=== PATIENT | female | born 1950 | race Caucasian/White ===

== ENCOUNTER → 2016-09-18 | Outpatient (CLI) | payer BC, MEDICARE ==
[~2016-09-18] MED LIST: ACETAMINOPHEN650 M3 PO; ACTOS PO; ALBUTEROL17 GM INH; ALPRAZOLAM PO; AMOXICILLIN500 M1 PO; ASPIRIN81 M1 PO; ASPIRIN81 M2 PO; CARDIZEM CD180 M1 PO; CARTIA XT180 M1 PO; CO Q10100 MG PO; COMBIVENT RESPIM4 GM INH; CYMBALTA20 M1 PO; CYMBALTA30 M1; CYMBALTA30 M1 PO; DIFLUCAN100 MG PO; DURAGESIC75 MCG EXT; DYAZIDE 37.5/251 CAP PO; DYAZIDE 371 CAP 37.5 DOB; DYAZIDE 371 CAP 37.5 PO; FENTANYL1 EAC1 TD; GLIPIZIDE10 MG PO; GLUCOTROL XL PO; HYDRALAZINE HCL10 MG PO; HYDROCHLOROTHIA25 MG PO; HYDROCODON-ACE1 EAC5 PO; HYDROCODONE-APA1 T54 PO; JANUVIA PO; JANUVIA25 MG PO; LASIX PO; LASIX80 MG PO; LEVAQUIN750 MG PO; LEVEMIR; LEVEMIR SUBQ; LEVEMIR100 UNITS/ SUBQ; LISINOPRIL10 MG PO; LOVENOX40 MG/0.4 INJ; MARY'S MAGIC POTION PO; METFORMIN HCL1000 M1 PO; METFORMIN PO; METOPROLOL SUC100 MG PO; MILK OF MAGNESIA PO; MULTI VITAMIN1 EACH PO; MULTI-VITAMIN1 EAC1 PO; NILSTAT1 ML PO; NOVOLOG100 U/M1 SUBQ; NOVOLOG100 U/ML; OXYGEN; PANTOPRAZOLE SO40 MG IVP; PANTOPRAZOLE SO40 MG PO; PEPCID40 MG PO; PLAVIX PO; PREDNISONE PO; PREDNISONE10 MG/DOSE PO; REMERON PO; STIOLTO RESPIMAT4 GM; STIOLTO RESPIMAT4 GM INH; SYMBICORT INH; TOPROL XL100 MG PO; ZESTORETIC 20-1 EACH PO; ZOCOR PO; ZOFRAN ODT4 MG IVP; ZOFRAN ODT4 MG PO
--- NOTE | ~2016-09-18 | XA60 ---
[facility] A Service of [facility] & [facility] RADIOLOGY TEXT RESULTS PATIENT: SARAHY HUMPHRIES LOCATION: [facility] : 46 UNIT #: [id number] AGE: [address]: Herson Ambriz MD SEX: F ORDER DR: [id number] [facility] [address] [place], [place] [address] [id number] O MR#: [id number] Acc #: [id number] NAME: SARAHY HUMPHRIES : 1950 SEX: F STUDY DATE/TIME: 09/18/2016 8:47 UNIT: [facility] ROOM: STUDY DESCRIPTION: XA BX Perc Liver Attending Physician: Herson Ambriz M.D. Ordering Physician: Herson Ambriz M.D. Primary Care Physician: Damon Pimentel M.D. MEDICAL IMAGING REPORT This report is preliminary unless electronic signature is present EXAM Biopsy, percutaneous, liver. INDICATION Miss Humphries is a 66-year-old lady, has a history of pancreatic cancer. She underwent CT-guided biopsy of a lesion within the right hepatic lobe on August 18, 2016. Additional material has been requested. FINDINGS Please see CT guide for results. Dictated by... Yudi Zafar M.D. THIS IS AN ELECTRONICALLY VERIFIED REPORT Yudi Zafar M.D. at 09/19/2016 5:00 PM AFF/tmw TD: 09/19/2016 12:23 JOB #: [id number] MEDICAL IMAGING REPORT COPY
--- NOTE | ~2016-09-18 | CT134 ---
[facility] A Service of [facility] & [facility] RADIOLOGY TEXT RESULTS PATIENT: SARAHY HUMPHRIES LOCATION: [facility] : 46 UNIT #: [id number] AGE: [address]: Herson Ambriz MD SEX: F ORDER DR: [id number] [facility] [address]. [place], [place] [address] [id number] O MR#: [id number] Acc #: [id number] NAME: SARAHY HUMPHRIES. : 1950 SEX: F STUDY DATE/TIME: 09/18/2016 8:47 UNIT: [facility] ROOM: STUDY DESCRIPTION: CT Guide Attending Physician: Herson Ambriz M.D. Ordering Physician: Herson Ambriz M.D. Primary Care Physician: Damon Pimentel M.D. MEDICAL IMAGING REPORT This report is preliminary unless electronic signature is present EXAM CT-guided liver biopsy. This CT exam was performed with one or more of the following radiation dose reduction techniques: automatic exposure control, adjustment of mA and/or kV according to patient size, and iterative reconstruction. INDICATION Miss Humphries is a 66-year-old lady, has a history of pancreatic cancer. She underwent CT-guided biopsy of a lesion within the right hepatic lobe on August 18, 2016. Additional material has been requested. PROCEDURE The risks, benefits, and alternatives to the procedure were explained to the patient, and signed, informed consent was obtained. She was placed supine on the CT scanner gantry. Preliminary CT scan was performed through the region of interest and an appropriate site overlying this patient's right hepatic lesion was selected. Overlying skin was marked. Patient was prepped and draped in the usual sterile fashion. Time-out was performed as per protocol. Skin and subcutaneous tissues were anesthetized with buffered lidocaine. Anesthesia needle was left in place. Repeat CT scan confirmed appropriate trajectory of the needle and at this point, a 17-gauge coaxial needle was advanced into the periphery of the lesion under CT guidance. Final CT scan showed position of the needle in the periphery of the lesion. At this point, two 2 cm core samples were obtained using an 18-gauge BioPince biopsy gun. Needle was then removed and manual pressure was applied until hemostasis was obtained. Patient tolerated the procedure well and there were no immediate complications. She did receive conscious sedation consisting of 3 mg of Versed and 150 mcg of fentanyl and continuous monitoring was provided throughout the procedure. [facility] A Service of [facility] RADIOLOGY TEXT RESULTS PATIENT: SARAHY HUMPHRIES LOCATION: [facility] #: [id number] : [birth year] UNIT #: [id number] AGE: [address]: Herson Ambriz MD SEX: F ORDER DR: Technically successful CT-guided liver biopsy as noted above. CT was used during the procedure and permanent images were saved. Dictated by... Yudi Zafar M.D. THIS IS AN ELECTRONICALLY VERIFIED REPORT Yudi Zafar M.D. at 09/19/2016 4:59 PM AFF/dagmar TD: 09/19/2016 12:22 JOB #: [id number] MEDICAL IMAGING REPORT COPY
[2016-09-18 07:32] LABS: HEMATOCRIT 37.3 % (35.0-45.0); HEMOGLOBIN 11.9 gm/dL (12.0-16.0); MEAN CELL VOLUME 89.6 FL (83-96); MEAN CORPUSCULAR HEMOGLOBIN 28.6 PG (28-34); MEAN CORPUSCULAR HGB CONC 31.9 g/dL (30-36); MEAN PLATELET VOLUME 9.1 FL (6.5-11.5); RED BLOOD COUNT 4.16 X10e (3.90-5.30); RED CELL DISTRIBUTION WIDTH 17.1 % (11.0-15.5); WHITE BLOOD COUNT 10.1 X10e3 (4.0-10.5)
[2016-09-18 07:49] LABS: PARTIAL THROMBOPLASTIN TIME 23.2 SECONDS (23.5-31.3)
== END | disposition home or self-care (01) ==
LOC: CIVR 07:03
PROVIDERS: Internal Medicine Hematology & Oncology
DX: C78.7 Secondary malignant neoplasm of liver and intrahepatic bile duct (principal); C25.1 Malignant neoplasm of body of pancreas; G89.3 Neoplasm related pain (acute) (chronic); F17.210 Nicotine dependence, cigarettes, uncomplicated; E11.9 Type 2 diabetes mellitus without complications; I25.10 Atherosclerotic heart disease of native coronary artery without angina pectoris; Z95.1 Presence of aortocoronary bypass graft; I73.9 Peripheral vascular disease, unspecified; Z95.820 Peripheral vascular angioplasty status with implants and grafts; Z90.710 Acquired absence of both cervix and uterus; Z86.14 Personal history of Methicillin resistant Staphylococcus aureus infection
CPT/HCPCS: 36415; 77012; 85027; 85610; 85730; 88307; J1642; J2250; J3010

== ENCOUNTER → 2016-10-04 | Outpatient (CLI) | payer MEDICARE, BC ==
--- NOTE | ~2016-10-04 | MR2 ---
[facility] A Service of [facility] & [facility] RADIOLOGY TEXT RESULTS PATIENT: SARAHY BLUM [facility] : 48 UNIT #: [id number] AGE: [address]: Herson Ambriz MD SEX: F ORDER DR: [id number] [facility] [address]. [place], [place] [address] [id number] O MR#: [id number] Acc #: [id number] NAME: SARAHY BLUM : 1950 SEX: F STUDY DATE/TIME: 10/04/2016 21:10 UNIT: [facility] ROOM: STUDY DESCRIPTION: MR Abdomen WWo Cont Attending Physician: Herson Ambriz M.D. Ordering Physician: Herson Ambriz M.D. Primary Care Physician: Damon Pimentel M.D. MRI CENTER REPORT This report is preliminary unless electronic signature is present. EXAM MRI abdomen with and without contrast INDICATION Restaging pancreatic cancer. Observation for metastatic disease and disease progression. PROCEDURE Multiplanar, multisequence MR imaging of the abdomen prior to and following 11 mL of MultiHance. COMPARISON 06/05/2016 FINDINGS ABDOMEN WITHOUT CONTRAST: Redemonstration of a cystic lesion in the body of the pancreas that measures 1.4 cm and is stable. There is stable dilation of the upstream pancreatic duct. Common duct nondilated. Gallbladder, kidneys, adrenal glands, spleen and bowel loops have normal signal. Multifocal new nodularity in the included lung bases with an index lesion right lung base measuring 2.2 cm. These are not well evaluated with MRI. ABDOMEN WITH CONTRAST: Patient's known metastasis in segments 6 and 7 has increased now measuring 4.9 x 3.8 cm, previously 2.6 x 1.5 cm. There is multifocal new metastatic disease with greater than 10 new metastases predominately scattered throughout the right hepatic lobe. The majority of these are small with the largest in segment 6 measuring 1.4 cm. 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 The splenic vein is occluded. This is progressive since the previous study. [facility] A Service of [facility] & [facility] RADIOLOGY TEXT RESULTS PATIENT: SARAHY BLUM LOCATION: [facility] : 48 UNIT #: [id number] AGE: [address]: Herson Ambriz MD SEX: F ORDER DR: Atherosclerotic irregularity of the abdominal aorta. IMPRESSION 1. Significant disease progression since the previous study. The main pancreatic lesion is very similar in appearance, however there has been considerable progression of the patient's hepatic metastatic disease including new lesions. There are also new pulmonary metastases. 2. Now complete obliteration of the portal, superior mesenteric and splenic vein confluence. Dictated by... Victor M Pinzon M.D. THIS IS AN ELECTRONICALLY VERIFIED REPORT Victor M Pinzon M.D. at 10/06/2016 7:36 AM Tana TD: 10/05/2016 11:38 JOB #: [id number] MRI CENTER REPORT COPY
[2016-10-04 21:17] LABS: POC - CREATININE 1.18 mg/dL (0.44-1.03)
== END | disposition home or self-care (01) ==
LOC: CMRI 19:19
PROVIDERS: Internal Medicine Hematology & Oncology
DX: C25.1 Malignant neoplasm of body of pancreas (principal); C78.7 Secondary malignant neoplasm of liver and intrahepatic bile duct; G89.3 Neoplasm related pain (acute) (chronic)
CPT/HCPCS: 74183; 82565; A9577

== ENCOUNTER 2016-10-22 08:14 | Inpatient (IN) | payer MEDICARE, BC ==
--- NOTE | ~2016-10-22 | CR63 ---
[facility] A Service of [facility] & [facility] RADIOLOGY TEXT RESULTS PATIENT: SARAHY BLUM LOCATION: [facility] - : 46 UNIT #: [id number] AGE: [address]: Damon Pimentel MD SEX: F ORDER DR: [id number] [facility] [address] [place], [place] [address] [id number] I MR#: [id number] Acc #: [id number] NAME: SARAHY BLUM. : 1950 SEX: F STUDY DATE/TIME: 10/22/2016 13:57 UNIT: [address] ROOM: Formerly named [facility] STUDY DESCRIPTION: CR Chest 2 View Attending Physician: Damon Pimentel M.D. Ordering Physician: Damon Pimentel M.D. Primary Care Physician: Damon Pimentel M.D. MEDICAL IMAGING REPORT This report is preliminary unless electronic signature is present EXAM PA and lateral chest HISTORY Shortness of air for 4 days. FINDINGS 2 views of the chest demonstrate mild hyperinflation of both lungs. Sternotomy with mediastinal clips and markers. Right IJ port catheter tip in the mid SVC. Bilateral emphysema. Mild linear atelectasis or scarring in the lung bases. No focal airspace infiltrates. No pleural effusions. IMPRESSION 1. No acute findings. No active disease. 2. Emphysema. 3. Prior CABG. Dictated by... Seamus Dominguez M.D. THIS IS AN ELECTRONICALLY VERIFIED REPORT Seamus Dominguez M.D. at 10/23/2016 3:03 PM KAYLAN/arvind TD: 10/23/2016 08:21 JOB #: [id number] MEDICAL IMAGING REPORT Page 1 of 1 COPY
--- NOTE | ~2016-10-22 | NM69 ---
[facility] A Service of [facility] & [facility] RADIOLOGY TEXT RESULTS PATIENT: SARAHY BLUM LOCATION: [facility] : 48 UNIT #: [id number] AGE: [address]: Damon Pimentel MD SEX: F ORDER DR: [id number] [facility] [address] [place], [place] [address] [id number] I MR#: [id number] Acc #: [id number] NAME: SARAHY BLUM. : 1950 SEX: F STUDY DATE/TIME: 10/22/2016 13:05 UNIT: [address] ROOM: [facility] STUDY DESCRIPTION: NM Pulm Vent and Perf Attending Physician: Damon Pimentel M.D. Ordering Physician: Damon Pimentel M.D. Primary Care Physician: Damon Pimentel M.D. MEDICAL IMAGING REPORT This report is preliminary unless electronic signature is present EXAM VQ lung scan HISTORY Shortness of air for 4 days. Right lower extremity DVT. FINDINGS The ventilation scan was performed with 32 mCi technetium DTPA. Perfusion scan was performed with 5.2 mCi technetium MAA. A small matched subsegmental ventilation and perfusion defect in the posterior right lower lobe, and small matched subsegmental ventilation and perfusion defect in the inferior left lower lobe. No moderate-sized or large perfusion defect. No VQ mismatch. IMPRESSION Low probability of pulmonary embolus. Dictated by... Seamus Dominguez M.D. THIS IS AN ELECTRONICALLY VERIFIED REPORT Seamus Dominguez M.D. at 10/23/2016 3:01 PM KAYLAN/dary TD: 10/23/2016 07:33 JOB #: [id number] MEDICAL IMAGING REPORT Page 1 of 1 COPY
--- NOTE | ~2016-10-22 | CO ---
Unit #: [id number] #: [id number] Patient: SARAHY HUMPHRIES [id number] [address] [place], [place] [address] [id number] I MR#: [id number] NAME: SARAHY HUMPHRIES. ROOM: 321 Age: 66 Sex: F Admission Date: 10/22/2016 : 1950 Attending Physician: Damon Pimentel M.D. Primary Care Physician: Damon Pimentel M.D. Consultation Date: 10/23/2016 CONSULTATION REPORT REASON FOR CONSULTATION Metastatic pancreatic cancer with a right lower extremity deep venous thrombosis. HISTORY OF PRESENT ILLNESS Ms. Sarahy Humphries is a 66-year-old with a history of metastatic pancreatic cancer, who has had chemotherapy with oxaliplatin and gemcitabine, receiving day #8 dose last week. She presented to the emergency room on 09/23/2016 complaining of shortness of breathing for approximately three days along with bilateral lower extremity calf pain. She subsequently underwent a V/Q scan, which showed low probability PE, Doppler studies of lower extremity, which showed a deep venous thrombosis with a D-dimer level more than 10,000. Doppler studies done, 10/22/2016, showed a DVT in the right lower extremity, involving the common femoral and superficial femoral vein and deep femoral vein on the right. She has been started on Lovenox 1 mg/kg body weight with the actual dose being 50 mg. Ms. Humphries tells me she has had no prior DVT. Shortness of breathing was assumed to be in part from exacerbation of COPD, and she is on IV steroids and antibiotics with improvement. PAST MEDICAL HISTORY Insulin-dependent diabetes mellitus, coronary artery disease with a history of coronary artery bypass grafting and previous history of heart failure, severe COPD, metastatic pancreatic cancer diagnosed in 10/2014. Other medical problems include hypertension, depression. PAST SURGICAL HISTORY Includes four-vessel coronary artery bypass grafting, hysterectomy, cervical fusion, cervical laminectomy, arthrectomy, and Mediport. FAMILY HISTORY Noncontributory to current illness. SOCIAL HISTORY Smokes half a pack a day. Single, , retired registered nurse. Does not drink any alcohol. REVIEW OF SYSTEMS A 14-point review of systems taken. CONSTITUTIONAL: No changes in appetite or weight. Fatigue. EYES: Negative. EARS, NOSE, MOUTH, AND THROAT: Negative. CARDIOVASCULAR: Negative. Unit #: [id number] #: [id number] Patient: SARAHY HUMPHRIES RESPIRATORY: As discussed. GASTROINTESTINAL: Well-controlled abdominal pain. GENITOURINARY: Negative. NEUROLOGIC: Some tingling of both hands, related to chemotherapy. MUSCULOSKELETAL: Calf pain. ALLERGIC/LYMPHATIC: Negative. SKIN: Negative. PHYSICAL EXAMINATION GENERAL: ECOG performance status is 2. VITAL SIGNS: Temperature 97.9, pulse rate is 69, respiratory rate is 16, blood pressure 116/69, O2 saturation 100% on room air. HEENT: Pupils are equal and reactive well to light. Mucous membranes are moist. NECK: Without adenopathy, JVD, or thyromegaly. CARDIOVASCULAR: First and second heart sounds are heard and regular without murmurs, gallops, or rubs. LUNGS: Chest expansion is symmetric. Bilateral equal air entry. Normal breath sounds. ABDOMEN: Soft and nontender. EXTREMITIES: Warm and good pulses. No edema, cyanosis, or clubbing. NEUROLOGIC: She is awake, alert, and oriented x3 without any focal findings. SKIN: Negative. LYMPHATIC: Negative. DIAGNOSTIC STUDIES LABORATORY RESULTS: Arterial blood gas at the time of admission was 7.50, pCO2 of 38.9, and PO2 of 62. CBC with a white count of 10.5, hemoglobin is 9.8, platelet count is 42,000. D-dimer is more than 10,000. BNP was greater than 10,000. IMAGING STUDIES: Radiology, V/Q scan, chest x-ray, and Doppler studies were personally reviewed by me. DISCUSSION Ms. Sarahy Humphries is a 66-year-old with a history of metastatic pancreatic cancer, currently receiving palliative chemotherapy with oxaliplatin and gemcitabine, admitted with shortness of breathing, in part assumed from exacerbation of chronic obstructive pulmonary disease. She has an asymptomatic deep venous thrombosis of right lower extremity, for which she is anticoagulated with Lovenox. Discussed with her that Lovenox is the best option for continuation of anticoagulation. We will check with pharmacy about her insurance benefits. Recommend continuation of Lovenox at current dosage with monitoring of platelet count. Thank you for allowing me to participate in her care, and I will follow with you. Dictated by... Herson Ambriz M.D. NIDHI/damain TD: 10/25/2016 03:33 JOB #: [id number] Unit #: [id number] #: [id number] Patient: SARAHY HUMPHRIES CONSULTATION REPORT Page 1 of 1 X Herson Ambriz MD CONSULTATION REPORT
--- NOTE | ~2016-10-22 | CO ---
Unit #: [id number] #: [id number] Patient: SARAHY BLUM [id number] [address] [place], [place] [address] [id number] I MR#: [id number] NAME: SARAHY BLUM. ROOM: 321 Age: 66 Sex: F Admission Date: 10/21/2016 : 1950 Attending Physician: Damon Pimentel M.D. Primary Care Physician: Damon Pimentel M.D. Consultation Date: 10/22/2016 CONSULTATION REPORT REASON FOR CONSULTATION Shortness of breath and hypoxemia. HISTORY OF PRESENT ILLNESS This is a 66-year-old female with known history of COPD and continued tobacco abuse. She also has metastatic pancreatic cancer to the liver and lungs, who presents with increasing shortness of breath over the last 3 days, chest pain, and bilateral lower extremity calf pain. She states she normally walks on a treadmill, but over the last few days, she was having difficulty doing this due to shortness of breath and pain. She said her pain in her legs since went away and she no longer has any chest discomfort. She still has shortness of breath and cough with some purulent phlegm, but not significantly different from her baseline. She states she had a chest x-ray done in her primary care doctor's office, which is not available here, but according to the chart did not show any acute infiltrate. PAST MEDICAL HISTORY Coronary artery disease, peripheral vascular disease, hypertension, metastatic pancreatic cancer, diabetes, depression, hyperlipidemia, tobacco abuse, COPD, CHF. PAST SURGICAL HISTORY CABG, hysterectomy, laminectomy, right leg arthrectomy, infusion port, cervical disk fusion. ALLERGIES Tetanus, KAREN inhibitor, and Demerol. MEDICATIONS Pepcid, Remeron, Symbicort, Combivent, Cymbalta, Lasix, Levemir, aspirin, Duragesic patch, Vicodin, and glipizide. SOCIAL HISTORY The patient smokes about half pack a day and has done so for the last 40 years. She denies alcohol or illicit drug use. She is unsure of her vaccination status. She has no known exposure to TB. FAMILY HISTORY COPD. REVIEW OF SYSTEMS Complete review of systems was performed, pertinent positives include chief complaint. Unit #: [id number] #: [id number] Patient: SARAHY BLUM PHYSICAL EXAMINATION VITAL SIGNS: Stable. She is afebrile. GENERAL: The patient is alert and oriented x3 and appears to be in no acute distress. HEENT: Eyes; PERRLA. Extraocular muscles intact. Sclerae are clear. Nose is patent and symmetrical without rhinitis. Throat without erythema or exudate. Tongue size normal. NECK: Without JVD, carotid bruit, thyromegaly. LYMPHATICS: Lymph nodes without submandibular, anterior cervical, or supraclavicular adenopathy. HEART: Rhonchi bilaterally. There is no egophony or dullness to percussion. No use of accessory muscles. Mild kyphosis. ABDOMEN: Soft, nontender, nondistended. EXTREMITIES: Without clubbing, cyanosis, or edema. SKIN: Warm, dry, and intact with no unusual lesions or diaphoresis. NEUROLOGIC: Cranial nerves II through XII intact bilaterally. Muscle strength and sensation are equal and appropriate in all extremities. LABORATORY STUDIES LABORATORY RESULTS: Reviewed by myself. IMAGING STUDIES: Reviewed by myself. IMPRESSION 1. Shortness of breath secondary to acute exacerbation of chronic obstructive pulmonary disease, possible pulmonary embolism with acute deep venous thrombosis, cannot rule out acute bronchitis or pneumonia at this time. 2. Acute right lower extremity deep venous thrombosis. 3. Metastatic pancreatic cancer. 4. Continued tobacco abuse. 5. 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 6. Coronary artery disease. 7. Diabetes. 8. Congestive heart failure. RECOMMENDATIONS 1. Start anticoagulation with Lovenox. 2. Bronchodilators. 3. Steroids. 4. Empiric antibiotics. 5. Check sputum cultures. 6. Follow up chest x-ray. 7. V/Q scan is pending that would still require anticoagulation. 8. Discuss need to discontinue tobacco and offered help. Dictated by... Vashti Gonzalez/damian TD: 10/23/2016 04:39 JOB #: [id number] Unit #: [id number] #: [id number] Patient: SARAHY BLUM CONSULTATION REPORT Page 1 of 1 X Vanessa Covington CONSULTATION REPORT
--- NOTE | ~2016-10-22 | DS ---
Unit #: [id number] #: [id number] Patient: SARAHY BLUM [id number] [address] [address] [id number] I MR#: [id number] NAME: SARAHY BLUM. ROOM: 321 Age: 66 Sex: F Admission Date: 10/22/2016 : 1950 Discharge Date: 10/24/2016 Attending Physician: Damon Pimentel M.D. Primary Care Physician: Damon Pimentel M.D. DISCHARGE SUMMARY PRINCIPAL DISCHARGE DIAGNOSES 1. Acute on chronic respiratory failure. 2. Bronchitis. 3. Right lower extremity deep vein thrombosis. 4. Thrombocytopenia. 5. Type 2 diabetes mellitus. 6. Stage IV pancreatic cancer. 7. History of congestive heart failure. 8. Coronary artery disease. 9. Peripheral arterial disease. 10. Tobacco use. 11. Acute on chronic renal insufficiency. 12. Major depressive disorder. 13. Status post 4-vessel coronary artery bypass grafting. 14. Status post hysterectomy. 15. Status post cervical fusion laminectomy. 16. Status post Port-A-Cath. 17. Status post atherectomy right lower extremity. PROCEDURES None. CONSULTANTS 1. Dr. Covington from Pulmonary Services. 2. Dr. Ambriz from Oncology/Hematology. REASON FOR HOSPITALIZATION The patient is a 66-year-old white female with history of coronary artery disease coronary artery bypass grafting, CHF, insulin requiring type 2 diabetes mellitus, COPD, stage IV pancreatic cancer, hyperlipidemia, lumbar spinal stenosis, aortic insufficiency, tobacco use, presents to the office with 3 days of sudden onset of shortness of air, cough, congestion, chest pain. It was somewhat pleuritic. In the office, she was in no acute distress, temperature was 99.8, O2 saturations were 85% on 3 L, blood pressure was okay, and pulse was 83. Chest x-ray, which showed resolution of previous infiltrate in the right lower lobe but appeared to show a right lower lobe soft-tissue tumor, heart size was within normal limits and the patient was admitted for acute on chronic respiratory failure and possible pulmonary embolism. HOSPITAL COURSE The patient was admitted to telemetry. Labs were sent. Stat venous ultrasound was ordered. She was started empirically on Levaquin and IV Unit #: [id number] #: [id number] Patient: SARAHY BLUM Solu-Medrol as well as supplemental oxygen and mini nebs. ABGs on 2 L showed pH of 7.5, a pCO2 of 38.9, and a paO2 of 62.9. CBC showed normal white count, hemoglobin was 9.8, platelets were low at 42,000. BMP showed potassium of 3.4, blood sugar of 46, BUN of 53, and GFR of 38.5. Troponin was less than 0.03. BNP was 92. D-dimer was greater than 10,000. Influenza A and B were negative. Ultrasound of the bilateral lower extremity showed a DVT in the right lower extremity. The patient was immediately started on a higher dose of the Lovenox as opposed to subcutaneous 40 mg that she was originally on. V/Q scan was ordered. CBCs were followed. Hematology was consulted. Pulmonary Services were consulted. Her hypoglycemia resolved with holding her glipizide and Levemir. She was covered with sliding scale insulin. V/Q scan showed a low probability pulmonary embolism, but had matched defects in both lower lobes. Followup chest x-ray here was read as emphysema, previous coronary artery bypass grafting, Port-A-Cath in normal position but no active disease. Another radiologist read as separate chest x-ray the next day showing again evidence of median sternotomy, right side Port-A-Cath unchanged, right humeral neck fracture with evidence of some healing, hyperinflation consistent with emphysema. No evidence of pneumothorax, pneumonia, pulmonary edema, or pleural effusion. Ill-defined nodular densities in bilateral lung bases unchanged from previous x-rays corresponding to spiculated nodules, right middle lobe, and left lower lobe on prior CT scan, but more pronounced. In any case, the patient rapidly improved. She required ongoing oxygen therapy. Her last platelet count this morning is 26,000, her white count is 3.1, hemoglobin 9.3. Potassium was replaced orally on origin to the hospital. Her Lasix was lowered because of azotemia. Room air O2 saturation was 88%. She is having O2 setup at home per Dr. Alejandro. She use to get Lovenox 40 mg subcu b.i.d. per Dr. Ambriz. She is on prednisone 40 mg for 3 days, 30 mg for 3 days, 20 mg for 3 days, 10 mg for 3 days. Amoxicillin 500 mg one p.o. t.i.d. #12. She is to resume her home medications; Symbicort 160/4.5 two puffs q.12, Respimat one puff q.i.d. p.r.n., Cymbalta 30 mg p.o. daily, Remeron 7.5 mg p.o. daily, Lasix was lowered from 80 to 40 mg p.o. daily, Levemir 15 units q.a.m. and 6 units q.p.m., NovoLog 2 units with breakfast and 2 L with lunch and 6 units with dinner, Pepcid 20 mg p.o. daily, aspirin 81 mg p.o. daily, Duragesic 75 mcg patch q.72 hours, hydrocodone/APAP of 10/325 one q.i.d. p.r.n. for pain, her glipizide is being discontinued. She will follow up with Dr. Alejandro in 3 weeks, follow up with me in 1 week, and follow up with Dr. Ambriz per his previous instructions. Dictated by... Damon Pimentel M.D. KAVON/damian TD: 10/25/2016 08:38 JOB #: [id number] Unit #: [id number] #: [id number] Patient: SARAHY BLUM DISCHARGE SUMMARY Page 1 of 1 X Damon Pimentel MD X DISCHARGE SUMMARY
--- NOTE | ~2016-10-22 | CR63 ---
[facility] A Service of [facility] & [facility] RADIOLOGY TEXT RESULTS PATIENT: SARAHY BLUM LOCATION: [facility] - : 48 UNIT #: [id number] AGE: [address]: Damon Pimentel MD SEX: F ORDER DR: [id number] [facility] [address] [place], [place] [address] [id number] I MR#: [id number] Acc #: [id number] NAME: SARAHY BLUM. : 1950 SEX: F STUDY DATE/TIME: 10/23/2016 10:28 UNIT: [address] ROOM: [facility] STUDY DESCRIPTION: CR Chest 2 View Attending Physician: Damon Pimentel M.D. Ordering Physician: Vanessa Covington D.O. Primary Care Physician: Damon Pimentel M.D. MEDICAL IMAGING REPORT This report is preliminary unless electronic signature is present EXAM 2 views chest, 10/23/2016. HISTORY Short of breath. TECHNIQUE PA and lateral radiographs of the chest are presented. COMPARISON STUDIES Comparison to the right shoulder series 09/12/2016, chest radiographs 10/22/2016, and chest CT 05/10/2016. FINDINGS Right side chest port unchanged. Stable postoperative changes median sternotomy and CABG. No clearly acute bony abnormality. Previously described right humeral neck fracture with evidence of some healing. I do not clearly see complete bony union at this time. Correlate clinically. The lungs are hyperinflated consistent with underlying emphysema. No indication of pneumonia, pulmonary edema, pleural effusion, or pneumothorax. Ill-defined nodular densities superimposed over the bilateral lung bases are not in the anticipated location of the nipple shadows given patient body habitus. They are unchanged from the prior plain radiograph and probably correspond to irregularly contoured/spiculated nodules in the right middle lobe and left lower lobe respectively on prior CT examination. They appear more pronounced than on the prior CT examination. In part, this could be related to magnification secondary to plain radiographic technique. These nodules are indeterminate. Their appearance on CT examination with spiculated margins is somewhat concerning and I would recommend reassessment with CT examination. No entirely new nodules are suggested. Depending upon appearance on followup standard CT of the chest, the nodules might be amenable to further characterization with CT/PET scan. [facility] A Service of [facility] RADIOLOGY TEXT RESULTS PATIENT: SARAHY BLUM LOCATION: [facility] 321- : 48 UNIT #: [id number] AGE: [address]: Damon Pimentel MD SEX: F ORDER DR: Dictated by... Tim Hale M.D. THIS IS AN ELECTRONICALLY VERIFIED REPORT Tim Hale M.D. at 10/24/2016 6:04 PM NASRIN/dagmar TD: 10/23/2016 13:56 JOB #: [id number] MEDICAL IMAGING REPORT Page 1 of 1 COPY
--- NOTE | ~2016-10-22 | US84 ---
[id number] [facility] [address] [place], [place] [address] [id number] I MR#: [id number] Acc #: [id number] NAME: SARAHY BLUM : 1950 SEX: F STUDY DATE/TIME: 10/22/2016 1:53 UNIT: C3A PCU ROOM: 321 STUDY DESCRIPTION: US LE Veins Complete Lito Stdy Attending Physician: Damon Pimentel M.D. Ordering Physician: Damon Pimentel M.D. Primary Care Physician: Damon Pimentel M.D. MEDICAL IMAGING REPORT This report is preliminary unless electronic signature is present EXAM Lower extremity ultrasound for DVT bilateral 10/22/2016 INDICATIONS Calf pain on the left for 5 days, short of air 3 days, chemotherapy patient. Pancreatic malignancy. TECHNIQUE Sonographic imaging of the lower extremities was performed bilaterally. No comparisons. FINDINGS The examination is abnormal. There is DVT involving the common femoral vein, superficial femoral vein and deep femoral vein on the right. There is no evidence of DVT in the left lower extremity. IMPRESSION 1. The examination is abnormal and positive for DVT in the right lower extremity. Findings were called to the patient's nurse at the time of this dictation. No DVT in the left lower extremity. STAT * RESULT Dictated by... Singh Hernández M.D. THIS IS AN ELECTRONICALLY VERIFIED REPORT Singh Hernández M.D. at 10/22/2016 6:03 AM FARHEEN/madisyn TD: 10/22/2016 02:51 JOB #: [id number] MEDICAL IMAGING REPORT Page 1 of 1 COPY
--- NOTE | ~2016-10-22 | HP ---
Unit #: [id number] #: [id number] Patient: SARAHY BLUM [id number] [address] [place], [place] [address] [id number] I MR#: [id number] NAME: SARAHY BLUM ROOM: 321 Age: 66 Sex: F Admission Date: 10/21/2016 : 1950 Attending Physician: Damon Pimentel M.D. Primary Care Physician: Damon Pimentel M.D. HISTORY AND PHYSICAL HISTORY OF PRESENT ILLNESS The patient is a 66-year-old white female with history of coronary artery disease, coronary bypass grafting, CHF, insulin-dependent diabetes mellitus, COPD, stage 4 pancreatic cancer, CHF, hyperlipidemia, lumbar spinal stenosis, aortic insufficiency, tobacco use, presents to the office with three days of sudden onset shortness of air, cough, congestion, chest pain that is somewhat pleuritic and an episode few days prior to that of left calf pain that spontaneously resolved. In the office, the patient was in no acute distress. Her temperature was 99.8. O2 sats were 85% on three liters and she currently wears O2 at two liters nasal cannula q.h.s. but not during the day. Her blood pressure was fine. Pulse was 83. Chest had decreased breath sounds, especially in the right lower lobe with inspiratory/expiratory wheezes and rhonchi throughout. Two-view chest x-ray showed resolution of her previous infiltrate in the right lower lobe. Heart size was within normal limits. There was evidence of a Port-A-Cath on the right with the position in proper place, evidence of prior three vessel coronary bypass grafting. She had a new nodule or soft tissue lesion in the right lower lobe that is more consistent with a met than a patch of pneumonia but it could be either. According to the patient, she thinks that her last PET scan did show the same area that they feel is a met, according to her oncologist. In any case, because of her chest pain, history of renal insufficiency, left calf discomfort, hypoxemia, it was felt that she needs to have an evaluation for pulmonary embolism as well as treatment for what appears to be bronchitis otherwise and she is placed in observation for STAT labs and further workup. PAST MEDICAL HISTORY Coronary artery disease, peripheral arterial disease, hypertension, stage 4 pancreatic cancer, type one diabetes mellitus, major depressive disorder, hyperlipidemia, tobacco use, COPD, CHF. PAST SURGICAL HISTORY Four vessel coronary bypass grafting, hysterectomy, cervical fusion, cervical laminectomy, atherectomy right leg, Port-A-Cath. SOCIAL HISTORY , retired, smokes a half pack of cigarettes daily. No alcohol or street drug use. FAMILY HISTORY Noncontributory. ALLERGIES Unit #: [id number] #: [id number] Patient: SARAHY BLUM Tetanus diphtheria toxoid, lisinopril, Demerol. CURRENT MEDICATIONS 1. Pepcid 40 mg p.o. daily. 2. Remeron 7.5 mg p.o. q.h.s. 3. Symbicort 160/4.5 mcg two puffs q.12. 4. Combivent Respimat one puff q.i.d. p.r.n. 5. Cymbalta 30 mg p.o. q.h.s. 6. Lasix 80 mg p.o. daily. 7. Levemir 15 units subcu q.a.m. and 4 units subcu q.p.m. 8. NovoLog two units with breakfast, two units with lunch and six units with dinner. 9. Aspirin 81 mg daily. 10. Duragesic patch 75 mcg q.72 hours. 11. Vicodin 10/325 mg one p.o. q.i.d. p.r.n. 12. Glipizide 10 mg one p.o. daily. PHYSICAL EXAMINATION GENERAL APPEARANCE: She is awake, alert, oriented x3, in no acute distress here with her sister in a wheelchair with oxygen on. VITAL SIGNS: Blood pressure 110/82 in the right arm. Temperature 99.8. O2 sat 85% on three liters nasal cannula. Pulse 83. Respirations 18. HEENT: Unremarkable except for a tympanostomy tube on the left. NECK: Supple without JVD, bruits, adenopathy or thyromegaly. CHEST: Diffusely decreased breath sounds but worse at the right lower lobe with inspiratory and expiratory wheezes and rhonchi throughout. HEART: Regular rate and rhythm without any murmurs, rubs or gallops. ABDOMEN: Not examined as the patient was in the wheelchair. EXTREMITIES: No clubbing, cyanosis or edema. DIAGNOSTIC STUDIES IMAGING: Chest x-ray as mentioned above. IMPRESSION 1. Acute on chronic respiratory failure. 2. Hypoxemia. 3. Right lower lobe infiltrate. 4. Atypical chest pain. 5. Coronary artery disease. 6. Peripheral arterial disease. 7. History of hypertension. 8. Stage 4 pancreatic cancer. 9. Type one diabetes mellitus. 10. Major depressive disorder. 11. Tobacco use. 12. Status post four vessel coronary bypass grafting. 13. History of renal insufficiency. 14. Status post hysterectomy. 15. Status post cervical fusion and laminectomy. 16. Status post atherectomy right lower extremity. 17. Status post Port-A-Cath. PLAN Admit 23-hour observation, telemetry, STAT ABGs on three liters, BNP, D-dimer, CBC, BMP, EKG, cardiac enzymes, begin Levaquin 500 mg IV now and daily, Solu-Medrol 88 mg IV now and then q.8 hours, Lovenox for DVT prophylaxis at 30 mg subcu daily adjusted for renal insufficiency, ask Pulmonary Services to see. She will either have a CT angiogram or V/Q Unit #: [id number] #: [id number] Patient: SARAHY BLUM scan depending on her renal function. I have also ordered some STAT bilateral lower extremity venous Dopplers and she will be fully anticoagulated obviously if these are positive for PE or DVT. She will be on sliding scale insulin. The rest of her home meds have been resumed. Further evaluation pending results of the above. Dictated by Damon Pimentel M.D. KAVON/wallace TD: 10/21/2016 12:34 JOB #: [id number] HISTORY AND PHYSICAL Page 1 of 1 X Damon Pimentel MD HISTORY AND PHYSICAL
[2016-10-22 00:22] LABS: HEMATOCRIT 29.9 % (35.0-45.0); HEMOGLOBIN 9.8 gm/dL (12.0-16.0); MEAN CELL VOLUME 83.8 FL (83-96); MEAN CORPUSCULAR HEMOGLOBIN 27.5 PG (28-34); MEAN CORPUSCULAR HGB CONC 32.8 g/dL (30-36); MEAN PLATELET VOLUME 8.4 FL (6.5-11.5); RED BLOOD COUNT 3.57 X10e (3.90-5.30); RED CELL DISTRIBUTION WIDTH 16.2 % (11.0-15.5); WHITE BLOOD COUNT 10.5 X10e3 (4.0-10.5)
[2016-10-22 00:25] LABS: ARTERIAL BLOOD GAS HCO3 30.5 mmol/L; ARTERIAL BLOOD GAS PCO2 38.9 mmHg (35.0-45.0); ARTERIAL BLOOD GAS PO2 62.9 mmHg (80.0-100); ARTERIAL BLOOD GAS pH 7.502 (7.350-7.450)
[2016-10-22 00:26] LABS: ARTERIAL BLOOD GAS ALLEN TEST NORMAL; ARTERIAL BLOOD GAS ART SITE RIGHT RADIAL; ARTERIAL BLOOD GAS CARBOXY HB 1.8 %sat (0.0-9.0); ARTERIAL BLOOD GAS DELIVERY NASAL CANNULA; ARTERIAL BLOOD GAS MET HB 1.2 %sat (0.0-2.0); ARTERIAL DRAW? YES
[2016-10-22 00:41] LABS: BUN/CREATININE RATIO 37.85; CREATININE SERUM 1.4 mg/dL (0.6-1.4); GLOM FILT RATE Estimated 38.5 mL/min (>60); POTASSIUM 3.4 mmol/L (3.5-5.1)
[2016-10-22 03:55] LABS: INFLUENZA A NEG (NEG); INFLUENZA B NEG (NEG)
[~2016-10-22 08:14] MED LIST changes: -AMOXICILLIN500 M1 PO; -COMBIVENT RESPIM4 GM INH; -CYMBALTA20 M1 PO; -DURAGESIC75 MCG EXT; -HYDROCODONE-APA1 T54 PO; -LASIX80 MG PO; -LEVEMIR; -LOVENOX40 MG/0.4 INJ; -NOVOLOG100 U/ML; -PEPCID40 MG PO; -REMERON PO
[2016-10-22 12:24] LABS: HEMATOCRIT 31.6 % (35.0-45.0); HEMOGLOBIN 10.2 gm/dL (12.0-16.0); LYMPHOCYTE# 0.7 X10e3 (1.0-3.5); LYMPHOCYTE% 8.4 % (17.0-45.0); MEAN CELL VOLUME 85.5 FL (83-96); MEAN CORPUSCULAR HEMOGLOBIN 27.5 PG (28-34); MEAN CORPUSCULAR HGB CONC 32.2 g/dL (30-36); MEAN PLATELET VOLUME 10.3 FL (6.5-11.5); MONOCYTE% 0.2 % (3.0-12.0); NEUTROPHIL# 7.2 X10e3 (1.5-7.1); NEUTROPHIL% 91.4 % (40-75); RED BLOOD COUNT 3.69 X10e (3.90-5.30); RED CELL DISTRIBUTION WIDTH 16.1 % (11.0-15.5); WHITE BLOOD COUNT 7.8 X10e3 (4.0-10.5)
[2016-10-22 12:29] LABS: DIFF IND YES; PLATELET COUNT 42 X10e3 (140-420)
[2016-10-22 12:59] LABS: ANISOCYTOSIS SL; PLATELET ESTIMATE DECREASED (NORMAL)
[2016-10-22 13:00] LABS: HYPOCHROMIA SL; MICROCYTOSIS SL
[2016-10-23 06:43] LABS: HEMATOCRIT 29.4 % (35.0-45.0); HEMOGLOBIN 9.5 gm/dL (12.0-16.0); LYMPHOCYTE# 0.4 X10e3 (1.0-3.5); LYMPHOCYTE% 10.8 % (17.0-45.0); MEAN CELL VOLUME 84.7 FL (83-96); MEAN CORPUSCULAR HEMOGLOBIN 27.4 PG (28-34); MEAN CORPUSCULAR HGB CONC 32.3 g/dL (30-36); MEAN PLATELET VOLUME 10.1 FL (6.5-11.5); MONOCYTE% 0.4 % (3.0-12.0); NEUTROPHIL# 3.6 X10e3 (1.5-7.1); NEUTROPHIL% 88.8 % (40-75); RED BLOOD COUNT 3.47 X10e (3.90-5.30); RED CELL DISTRIBUTION WIDTH 16.1 % (11.0-15.5)
[2016-10-23 06:45] LABS: PLATELET COUNT 30 X10e3 (140-420)
[2016-10-23 06:46] LABS: DIFF IND NO
[2016-10-23 07:29] LABS: BUN/CREATININE RATIO 33.57; CALCIUM SERUM 9.1 mg/dL (8.4-10.2); CREATININE SERUM 1.4 mg/dL (0.6-1.4); GLOM FILT RATE Estimated 38.5 mL/min (>60); POTASSIUM 5.1 mmol/L (3.5-5.1)
[2016-10-24 09:43] LABS: EOSINOPHIL% 0.2 % (0.0-7.0); HEMATOCRIT 28.5 % (35.0-45.0); HEMOGLOBIN 9.3 gm/dL (12.0-16.0); LYMPHOCYTE# 0.8 X10e3 (1.0-3.5); LYMPHOCYTE% 26.1 % (17.0-45.0); MEAN CELL VOLUME 85.4 FL (83-96); MEAN CORPUSCULAR HEMOGLOBIN 27.9 PG (28-34); MEAN CORPUSCULAR HGB CONC 32.7 g/dL (30-36); MEAN PLATELET VOLUME 9.9 FL (6.5-11.5); MONOCYTE% 0.5 % (3.0-12.0); NEUTROPHIL# 2.3 X10e3 (1.5-7.1); NEUTROPHIL% 73.2 % (40-75); RED BLOOD COUNT 3.34 X10e (3.90-5.30); RED CELL DISTRIBUTION WIDTH 16.4 % (11.0-15.5); WHITE BLOOD COUNT 3.1 X10e3 (4.0-10.5)
[2016-10-24 10:08] LABS: PLATELET COUNT 26 X10e3 (140-420)
[2016-10-24 10:09] LABS: DIFF IND NO
[2016-10-24] MEDS ORDERED: PREDNISONE PO (18:36)
[2016-11-01] MEDS ORDERED: ASPIRIN81 M2 PO (20:03)
[2016-11-01] MEDS ORDERED: HYDROCODONE-APA1 T54 PO (20:06)
[2016-11-01] MEDS ORDERED: DURAGESIC75 MCG EXT (20:07)
[2016-11-03] MEDS ORDERED: PEPCID40 MG PO (07:28)
[2016-11-03] MEDS ORDERED: COMBIVENT RESPIM4 GM INH (07:48)
[2016-11-03] MEDS ORDERED: SYMBICORT INH (07:49)
[2016-11-03] MEDS ORDERED: REMERON PO (07:53)
[2016-11-03] MEDS ORDERED: LEVEMIR (11:14)
[2016-11-03] MEDS ORDERED: NOVOLOG100 U/ML (11:16)
[2016-11-03] MEDS ORDERED: LOVENOX40 MG/0.4 INJ (18:36)
[2016-11-03] MEDS ORDERED: AMOXICILLIN500 M1 PO (18:36)
[2016-11-03] MEDS ORDERED: LASIX80 MG PO (20:07)
[2016-11-03] MEDS ORDERED: CYMBALTA20 M1 PO (20:08)
== END 2016-10-24 19:45 | disposition home or self-care (01) | DRG 189 ==
LOC: C3A PCU 08:14
PROVIDERS: Internal Medicine
DX: J96.21 Acute and chronic respiratory failure with hypoxia (principal); D61.810 Antineoplastic chemotherapy induced pancytopenia; C25.9 Malignant neoplasm of pancreas, unspecified; I82.411 Acute embolism and thrombosis of right femoral vein; E10.22 Type 1 diabetes mellitus with diabetic chronic kidney disease; J44.1 Chronic obstructive pulmonary disease with (acute) exacerbation; I13.0 Hypertensive heart and chronic kidney disease with heart failure and stage 1 through stage 4 chronic kidney disease, or unspecified chronic kidney disease; R07.89 Other chest pain; I25.10 Atherosclerotic heart disease of native coronary artery without angina pectoris; I73.9 Peripheral vascular disease, unspecified; Z79.4 Long term (current) use of insulin; F32.9 Major depressive disorder, single episode, unspecified; F17.210 Nicotine dependence, cigarettes, uncomplicated; Z95.1 Presence of aortocoronary bypass graft; Z90.710 Acquired absence of both cervix and uterus; Z79.82 Long term (current) use of aspirin; I50.9 Heart failure, unspecified; N18.9 Chronic kidney disease, unspecified
CPT/HCPCS: 36600; 71020; 78582; 80048; 82803; 82947; 83880; 84484; 85025; 85027; 85379; 87804; 93970; 94640; 94760; A9540; A9567; J1650; J1815; J1956; J2930

== ENCOUNTER 2016-10-28 15:06 | Emergency (ER) | payer MEDICARE, BC ==
[2016-11-01] MEDS ORDERED: ASPIRIN81 M2 PO (20:03)
[2016-11-01] MEDS ORDERED: HYDROCODONE-APA1 T54 PO (20:06)
[2016-11-01] MEDS ORDERED: DURAGESIC75 MCG EXT (20:07)
[2016-11-03] MEDS ORDERED: PEPCID40 MG PO (07:28)
[2016-11-03] MEDS ORDERED: COMBIVENT RESPIM4 GM INH (07:48)
[2016-11-03] MEDS ORDERED: SYMBICORT INH (07:49)
[2016-11-03] MEDS ORDERED: REMERON PO (07:53)
[2016-11-03] MEDS ORDERED: LEVEMIR (11:14)
[2016-11-03] MEDS ORDERED: NOVOLOG100 U/ML (11:16)
[2016-11-03] MEDS ORDERED: AMOXICILLIN500 M1 PO (18:36)
[2016-11-03] MEDS ORDERED: LOVENOX40 MG/0.4 INJ (18:36)
[2016-11-03] MEDS ORDERED: LASIX80 MG PO (20:07)
[2016-11-03] MEDS ORDERED: CYMBALTA20 M1 PO (20:08)
== END 2016-10-28 20:05 | disposition home or self-care (01) ==
LOC: CED 15:06
DX: D69.6 Thrombocytopenia, unspecified (principal); I73.9 Peripheral vascular disease, unspecified; J44.9 Chronic obstructive pulmonary disease, unspecified; F17.200 Nicotine dependence, unspecified, uncomplicated; Z95.1 Presence of aortocoronary bypass graft; Z88.8 Allergy status to other drugs, medicaments and biological substances; Z79.899 Other long term (current) drug therapy
CPT/HCPCS: 36415; 36430; 85025; 86850; 86900; 86901; 99284; P9035

== ENCOUNTER → 2016-11-01 | Outpatient (CLI) | payer MEDICARE, BC ==
[~2016-11-01] MED LIST changes: +AMOXICILLIN500 M1 PO; +COMBIVENT RESPIM4 GM INH; +CYMBALTA20 M1 PO; +DURAGESIC75 MCG EXT; +HYDROCODONE-APA1 T54 PO; +LASIX80 MG PO; +LEVEMIR; +LOVENOX40 MG/0.4 INJ; +NOVOLOG100 U/ML; +PEPCID40 MG PO; +REMERON PO
[2016-11-01 08:09] LABS: HEMATOCRIT 22.2 % (35.0-45.0); HEMOGLOBIN 7.2 gm/dL (12.0-16.0); MEAN CELL VOLUME 84.1 FL (83-96); MEAN CORPUSCULAR HEMOGLOBIN 27.5 PG (28-34); MEAN CORPUSCULAR HGB CONC 32.7 g/dL (30-36); MEAN PLATELET VOLUME 10.1 FL (6.5-11.5); RED BLOOD COUNT 2.64 X10e (3.90-5.30); RED CELL DISTRIBUTION WIDTH 15.8 % (11.0-15.5); WHITE BLOOD COUNT 2.1 X10e3 (4.0-10.5)
== END | disposition home or self-care (01) ==
LOC: CSSDAY 07:12
PROVIDERS: Internal Medicine Hematology & Oncology
DX: C25.9 Malignant neoplasm of pancreas, unspecified (principal); D64.81 Anemia due to antineoplastic chemotherapy; D69.6 Thrombocytopenia, unspecified
CPT/HCPCS: 36415; 36430; 85027; 86850; 86900; 86901; 86923; J1642; P9016; P9035

== ENCOUNTER → 2016-11-03 | Outpatient (CLI) | payer MEDICARE, BC ==
[2016-11-03 08:10] LABS: BASOPHIL% 0.2 % (0-2.5); EOSINOPHIL% 0.6 % (0.0-7.0); LYMPHOCYTE# 3.3 X10e3 (1.0-3.5); MEAN CELL VOLUME 83.6 FL (83-96); MEAN CORPUSCULAR HEMOGLOBIN 27.7 PG (28-34); MEAN CORPUSCULAR HGB CONC 33.2 g/dL (30-36); MEAN PLATELET VOLUME 9.6 FL (6.5-11.5); MONOCYTE# 0.2 X10e3 (0-1.0); MONOCYTE% 4.8 % (3.0-12.0); NEUTROPHIL% 21.4 % (40-75); RED BLOOD COUNT 2.88 X10e (3.90-5.30); RED CELL DISTRIBUTION WIDTH 15.3 % (11.0-15.5)
[2016-11-03 08:27] LABS: PLATELET COUNT 53 X10e3 (140-420); WHITE BLOOD COUNT 4.6 X10e3 (4.0-10.5)
[2016-11-03 08:29] LABS: DIFF IND YES
[2016-11-03 08:38] LABS: ANISOCYTOSIS SL; HYPOCHROMIA SL; PLATELET ESTIMATE DECREASED (NORMAL)
== END | disposition home or self-care (01) ==
LOC: CSSDAY 07:29
PROVIDERS: Internal Medicine Hematology & Oncology
DX: C25.9 Malignant neoplasm of pancreas, unspecified (principal); D64.81 Anemia due to antineoplastic chemotherapy; D69.6 Thrombocytopenia, unspecified
CPT/HCPCS: 36430; 85025; 86850; 86900; 86901; 86923; J1642; P9016

== ENCOUNTER → 2016-11-30 | Outpatient (CLI) | payer MEDICARE, BC ==
--- NOTE | ~2016-11-30 | US83 ---
[facility] A Service of [facility] RADIOLOGY TEXT RESULTS PATIENT: SARAHY BLUM LOCATION: [facility] : 46 UNIT #: [id number] AGE: [address]: Herson Ambriz MD SEX: F ORDER DR: [id number] [facility] [address] [place], [place] [address] [id number] O MR#: [id number] Acc #: [id number] NAME: SARAHY BLUM. : 1950 SEX: F STUDY DATE/TIME: 11/30/2016 14:30 UNIT: [facility] ROOM: STUDY DESCRIPTION: LE [employer] Attending Physician: Herson Ambriz M.D. Referring Physician: Herson Ambriz M.D. Ordering Physician: Herson Ambriz M.D. Primary Care Physician: Damon Pimentel M.D. MEDICAL IMAGING REPORT This report is preliminary unless electronic signature is present EXAM Arterial Doppler. INDICATION Claudication. This patient does have a history of cancer. TECHNIQUE Manuel-scale, color Doppler, and spectral Doppler waveform analysis was performed through the left lower extremity. FINDINGS Velocities within the left common femoral artery are within normal limits, although the patient is noted to have calcified plaque. The waveform also appears normal within the left common femoral artery. Velocities within the left profunda femoris and left superficial femoral arteries proximally appear relatively well preserved. However, the patient has significant decrease in velocities within the mid left superficial femoral artery and overall velocities distal to this appear diminished with significant atherosclerotic plaque identified. IMPRESSION I think findings are certainly suggestive of extensive atherosclerotic involvement of the left lower extremity, particularly extending from the mid thigh into the calf. Ankle-brachial indices would be complimentary. CT angiography of the abdomen and pelvis with bilateral lower extremity runoff could be considered. Dictated by... Yudi Zafar M.D. THIS IS AN ELECTRONICALLY VERIFIED REPORT [facility] A Service of [facility] RADIOLOGY TEXT RESULTS PATIENT: SARAHY BLUM LOCATION: [facility] : 48 UNIT #: [id number] AGE: [address]: Herson Ambriz MD SEX: F ORDER DR: Yudi Zafar M.D. at 12/01/2016 3:29 PM AFF/tmw TD: 12/01/2016 14:13 JOB #: [id number] MEDICAL IMAGING REPORT Page 1 of 1 COPY
== END | disposition home or self-care (01) ==
LOC: CNIV 13:43
DX: I70.212 Atherosclerosis of native arteries of extremities with intermittent claudication, left leg (principal); C25.1 Malignant neoplasm of body of pancreas; C78.7 Secondary malignant neoplasm of liver and intrahepatic bile duct; G89.3 Neoplasm related pain (acute) (chronic)
CPT/HCPCS: 93926

== ENCOUNTER → 2016-12-14 | Outpatient (CLI) | payer MEDICARE, BC ==
--- NOTE | ~2016-12-14 | CT16 ---
[facility] A Service of [facility] RADIOLOGY TEXT RESULTS PATIENT: SARAHY BLUM LOCATION: [facility] : 48 UNIT #: [id number] AGE: [address]: Herson Ambriz MD SEX: F ORDER DR: [id number] [id number] [place], [place] [address] [id number] O MR#: [id number] Acc #: [id number] NAME: SARAHY BLUM : 1950 SEX: F STUDY DATE/TIME: 12/14/2016 17:57 UNIT: [facility] ROOM: STUDY DESCRIPTION: CT Angio Chest for PE Attending Physician: Herson Ambriz M.D. Ordering Physician: Herson Ambriz M.D. Primary Care Physician: Damon Pimentel M.D. MEDICAL IMAGING REPORT This report is preliminary unless electronic signature is present EXAM CT-A of the chest. INDICATIONS Pancreatic malignancy. Shortness of air. 3-day duration. Increasing in severity. Prior DVT. TECHNIQUE CT angiography of the chest utilizing 80 mL Isovue-370 IV contrast. Coronal 3-D MIP reconstructions and standard sagittal reconstructions were obtained. This CT exam was performed with one or more of the following radiation dose reduction techniques: automatic exposure control, adjustment of mA and/or kV according to patient size, and iterative reconstruction. COMPARISON CT chest dated 05/10/2016. FINDINGS No pulmonary embolus. Thoracic aorta is normal in caliber. Patient is status post CABG. There is an enlarged right hilar lymph node measuring up to 1.3 cm in short axis. No pericardial or pleural effusion. There has been development of multiple small pulmonary nodules throughout both lungs. The majority of these nodules measure less than a centimeter; however, there is a spiculated nodule in the right lower lobe measuring 2.7 x 2 cm. There is a second nodule in the right lower lobe, near the diaphragm, measuring 1.7 x 1.2 cm. There is a lesion in the periphery of the left lower lobe that measures 1.3 cm maximally. [facility] A Service of [facility] & [facility] RADIOLOGY TEXT RESULTS PATIENT: SARAHY BLUM LOCATION: [facility] : 46 UNIT #: [id number] AGE: [address]: Herson Ambriz MD SEX: F ORDER DR: There is mucous plugging within the right middle lobe, right lower lobe and left lower lobe bronchi. Limited images of the upper abdomen were obtained. There is diffuse metastatic disease throughout the liver. This has increased from the prior study. A large conglomeration of metastatic lesions in the medial right hepatic lobe measures up to 5.7 cm, compared to 4.8 cm previously. Non-index lesions have also increased in size. A lesion in the superior right hepatic lobe measures 2.5 cm, compared to 0.8 cm previously. The primary pancreatic neoplasm is only partially imaged; however, this measures at least 4.6 cm compared to 4.1 cm previously. No acute osseous abnormalities. IMPRESSION 1. No pulmonary emboli. 2. Numerable pulmonary metastases throughout both lungs. The largest lesions have increased in size from the MRI abdomen dated 10/04/2016. 3. Emphysema. 4. Mucous plugging within the right middle lobe, right lower lobe, and left lower lobe. 5. Progression of metastatic disease in the abdomen with increased size of the primary pancreatic lesion and increased size and number of hepatic metastatic disease. Dictated by... Francisco Luther M.D. THIS IS AN ELECTRONICALLY VERIFIED REPORT Francisco Luther M.D. at 12/15/2016 10:26 PM HENRIQUE/edison TD: 12/14/2016 18:46 JOB #: [id number] MEDICAL IMAGING REPORT Page 1 of 1 COPY
[2016-12-14 19:41] LABS: POC - CREATININE 0.84 mg/dL (0.44-1.03); POC - GFR >60.0 mL/min (>60)
== END | disposition home or self-care (01) ==
LOC: CCAT 17:16
PROVIDERS: Internal Medicine Hematology & Oncology
DX: C25.1 Malignant neoplasm of body of pancreas (principal); C78.7 Secondary malignant neoplasm of liver and intrahepatic bile duct; G89.3 Neoplasm related pain (acute) (chronic); R06.02 Shortness of breath; C78.02 Secondary malignant neoplasm of left lung; C78.01 Secondary malignant neoplasm of right lung; J43.9 Emphysema, unspecified; T17.890A Other foreign object in other parts of respiratory tract causing asphyxiation, initial encounter
CPT/HCPCS: 71275; 82565; Q9967

== ENCOUNTER → 2017-01-20 | Outpatient (CLI) | payer MEDICARE, BC ==
--- NOTE | ~2017-01-20 | MR17 ---
[facility] A Service of [facility] RADIOLOGY TEXT RESULTS PATIENT: SARAHY BLUM LOCATION: [facility] : 46 UNIT #: [id number] AGE: [address]: Herson Ambriz MD SEX: F ORDER DR: [id number] [id number] [place], [place] [address] [id number] O MR#: [id number] Acc #: [id number] NAME: SARAHY BLUM. : 1950 SEX: F STUDY DATE/TIME: 01/20/2017 9:56 UNIT: [facility] ROOM: STUDY DESCRIPTION: MR Brain WWo Contrast Attending Physician: Herson Ambriz M.D. Referring Physician: Herson Ambriz M.D. Ordering Physician: Herson Ambriz M.D. Primary Care Physician: Damon Pimentel M.D. MRI CENTER REPORT This report is preliminary unless electronic signature is present. EXAM Brain MR with and without contrast, 01/20/2017. PROCEDURE Routine brain MR with and without contrast. COMPARISON None HISTORY History of pancreatic cancer with left-sided/facial headaches for 3 weeks. Observation for suspected metastatic malignancy. COMPARISON None FINDINGS There is no MR evidence of acute ischemia or other restricted diffusion. There is no evidence of hemorrhage or hydrocephalus or extraaxial fluid collection. Bone marrow signal is within normal limits. Normal flow voids are seen in the cerebral vessels. There is moderately extensive symmetric nonspecific white matter change, but postcontrast images show no mass or abnormal enhancement. IMPRESSION Moderate nonspecific white matter change, with mild volume loss, but no evidence of acute ischemia, hemorrhage, or mass. No evidence to suggest metastatic disease. Dictated by... [facility] A Service of [facility] RADIOLOGY TEXT RESULTS PATIENT: SARAHY BLUM LOCATION: [facility] : 46 UNIT #: [id number] AGE: [address]: Herson Ambriz MD SEX: F ORDER DR: Naeem Mak M.D. THIS IS AN ELECTRONICALLY VERIFIED REPORT Naeem Mak M.D. at 01/26/2017 5:37 PM SUNITHA/edison TD: 01/22/2017 17:01 JOB #: [id number] MRI CENTER REPORT Page 1 of 1 COPY
== END | disposition home or self-care (01) ==
LOC: CMRI 09:34
DX: C25.1 Malignant neoplasm of body of pancreas (principal); C78.7 Secondary malignant neoplasm of liver and intrahepatic bile duct; G89.3 Neoplasm related pain (acute) (chronic)
CPT/HCPCS: 70553; A9577